=== PATIENT | male | born 1970 | race Two or more races ===

== ENCOUNTER 2023-04-12 08:43 | Emergency (ER) | payer BC ==
[~2023-04-12] VITALS: Ht 175.3 cm; Wt 85.7 kg
[2023-04-12] MEDS ORDERED: OMEPRAZOLE40 MG PO (09:14)
[2023-04-12] MEDS ORDERED: HYDRODIURIL12.5 MG PO (09:15)
[2023-04-12] MEDS ORDERED: EZALLOR SPRINKLE5 MG PO (09:15)
[2023-04-12] MEDS ORDERED: ZESTRIL10 M1 PO (09:15)
[2023-04-12] MEDS ORDERED: FISH OIL 1,001000 MG PO (09:15)
[2023-04-12] MEDS ORDERED: GLUMETZA500 MG PO (09:16)
[2023-04-12] MEDS ORDERED: SERTRALINE20 MG/1 ML PO (09:17)
[2023-04-12] MEDS ORDERED: PEPCID AC20 MG PO (09:17)
[2023-04-12 11:01] LABS: HEMATOCRIT 37.9 % (39.0-48.0); HEMOGLOBIN 12.9 g/dL (13-16.00); MEAN CELL VOLUME 78.1 fL (80.0-100.00); MEAN CORPUSCULAR HEMOGLOBIN 26.5 pg (27.00-32.0); PLATELET COUNT 172 K/uL (150-450); RED BLOOD COUNT 4.86 M/uL (4.00-6.00)
== END 2023-04-12 12:23 | disposition home or self-care (01) ==
LOC: ER 08:45
PROVIDERS: General Practice
DX: J10.1 Influenza due to other identified influenza virus with other respiratory manifestations (principal); Z20.822 Contact with and (suspected) exposure to COVID-19; E11.9 Type 2 diabetes mellitus without complications; Z79.84 Long term (current) use of oral hypoglycemic drugs; I10 Essential (primary) hypertension